=== PATIENT | male | born 1965 | race Caucasian/White ===

== ENCOUNTER 2024-03-15 12:46 | Outpatient (CLI) | payer OTHER, SELFPAY ==
[2024-03-15 14:25] LABS: Alanine Aminotransferase 30 U/L (6-50); Albumin Level 4.2 g/dL (3.5-5.1); Alkaline Phosphatase 54 U/L (38-126); Anion Gap 9 mmol/L (4-12); Aspartate Amino Transferase 31 U/L (17-59); Bilirubin,Total 0.5 mg/dL (0.2-1.3); Blood Urea Nitrogen 17 mg/dL (9-20); Calcium 8.8 mg/dL (8.4-10.2); Carbon Dioxide 24 mmol/L (22-30); Chloride 104 mmol/L (98-107); Cholesterol 141 mg/dL (0-200); Estimated Glomerular Filt Rate > 60; Glucose 87 mg/dL (65-110); HDL Direct 40 mg/dL; Potassium 3.8 mmol/L (3.4-5.0); Sodium 137 mmol/L (137-145); Triglycerides 168 mg/dL (<150)
[2024-03-15 14:36] LABS: LDL Cholesterol Direct 79 mg/dL
[2024-03-15 14:55] LABS: Prostate Specific Antigen 0.4 ng/mL (< OR = 4.0)
[2024-03-15 15:03] LABS: Hemoglobin A1C 6.1 % (<5.7)
== END 2024-03-15 12:47 | disposition home or self-care (01) ==
DX: E78.5 Hyperlipidemia, unspecified (principal); R73.03 Prediabetes; Z19.1 Hormone sensitive malignancy status
CPT/HCPCS: 36415; 80053; 80061; 83036; 84153